=== PATIENT | female | born 1990 | race African-American/Black ===

== ENCOUNTER 2018-03-02 06:06 | Day surgery (SDC) | payer OTHER, MEDICAID ==
[2018-03-02] MEDS ORDERED: BUPIVACAINE 0.5%/EPI (SDV) 30 ML INJ (06:54)
[2018-03-02] MEDS ORDERED: LACTATED RINGER'S 1,000 ML IV (07:30)
[2018-03-02] MEDS: BUPIVACAINE 0.5%/EPI (SDV) 30 ML INJ INJ (07:35)
[2018-03-02] MEDS ORDERED: MIDAZOLAM 1 MG/ML 2 ML INJ (07:59)
[2018-03-02] MEDS ORDERED: FENTAnyl 50 MCG/ML VIAL (07:59)
[2018-03-02] MEDS ORDERED: DIPHENHYDRAMINE 50 MG INJ IV (08:00)
[2018-03-02] MEDS ORDERED: LABETALOL HCL 20MG INJ IV ×2 (08:00→09:00)
[2018-03-02] MEDS ORDERED: FENTAnyl 50 MCG/ML VIAL IV ×2 (08:00)
[2018-03-02] MEDS ORDERED: hydrALAzine 20 MG INJ IV ×2 (08:00→09:00)
[2018-03-02] MEDS ORDERED: ONDANSETRON 4 MG INJ IV (08:00)
[2018-03-02] MEDS ORDERED: PROCHLORPERAZINE 10 MG INJ IV (08:00)
[2018-03-02] MEDS ORDERED: HYDROmorphONE 1 MG/5 ML IV SYRINGE IV ×3 (08:00)
[2018-03-02] MEDS ORDERED: MEPERIDINE 25 MG INJ IV (08:00)
[2018-03-02] MEDS ORDERED: CEFAZOLIN 1 GM INJ (08:07)
[2018-03-02] MEDS ORDERED: DEXAMETHASONE 4 MG/ML 1 ML INJ (08:21)
[2018-03-02] MEDS ORDERED: PROPOFOL 40 ML (08:21)
[2018-03-02] MEDS ORDERED: SUCCINYLCHOLINE CHLORIDE 100 MG/5 ML SYG IV (08:21)
[2018-03-02] MEDS ORDERED: ONDANSETRON 4 MG INJ (08:21)
[2018-03-02] MEDS ORDERED: LIDOCAINE 2% (SDV) 5 ML INJ (08:21)
[2018-03-02] MEDS ORDERED: ROCURONIUM 50 MG INJ (08:21)
[2018-03-02] MEDS ORDERED: SUGAMMADEX SODIUM 200 MG/2 ML VIAL IV (08:24)
[2018-03-02] MEDS ORDERED: KETOROLAC 30 MG INJ (08:38)
[2018-03-02] MEDS ORDERED: OXYCODONE/ACETAMINOPHEN (5/325) TAB PO ×2 (09:00)
[2018-03-02] MEDS: FENTAnyl 50 MCG/ML VIAL IV (09:05)
== END 2018-03-02 10:36 | disposition home or self-care (01) ==
LOC: SDS 06:06
DX: Z30.2 Encounter for sterilization (principal); E66.9 Obesity, unspecified; Z68.37 Body mass index [BMI] 37.0-37.9, adult
CPT/HCPCS: 58670